=== PATIENT | female | born 1985 | race African-American/Black ===

== ENCOUNTER 2020-08-12 04:35 | Day surgery (SDC) | payer OTHER ==
[2020-08-11 09:49] VITALS: BMI 25.8
[2020-08-12] MEDS ORDERED: MIDAZOLAM HCL 2 MG/2 ML SINGLE DOSE VIAL ONE ×3 (07:27→07:51)
[2020-08-12] MEDS ORDERED: VASOPRESSIN 20 UNITS/ML VIAL IV ONE (07:32)
[2020-08-12] MEDS ORDERED: ceFAZolin SODIUM 1 GM VIAL ONE (07:50)
[2020-08-12] MEDS ORDERED: LIDOCAINE HCL/PF 2% SDV 5ML VIAL ONE ×2 (07:50→07:51)
[2020-08-12] MEDS ORDERED: LIDOCAINE HCL 2% JELLY (5 ML/TUBE) ONE (07:50)
[2020-08-12] MEDS ORDERED: KETOROLAC TROMETHAMINE 30 MG/1 ML VIAL ONE (07:50)
[2020-08-12] MEDS ORDERED: DEXAMETHASONE SOD PHOSPHATE 4 MG/1 ML VIAL ONE (07:50)
[2020-08-12] MEDS ORDERED: GLYCOPYRROLATE 0.2 MG/1 ML VIAL ONE ×2 (07:51→09:18)
[2020-08-12] MEDS ORDERED: fentaNYL CITRATE 250 MCG/5 ML VIAL ONE (07:51)
[2020-08-12] MEDS ORDERED: ROCURONIUM BROMIDE 50 MG/5 ML SYRINGE ONE (07:52)
--- NOTE | 2020-08-12 08:14 | HP ---
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: Alzheimer's, CVA, Dementia, Migraine, Multiple Sclerosis, Peripheral Neuropathy, Parkinson's, Seizure, Syncope, TIA, Vertigo, Other Cardiovascular: No: AFIB, Aneurysm, Aortic Insufficiency, Aortic Stenosis, CAD, CHF, Deep Vein Thrombosis, HTN, Hyperlipdemia, AK, Mitral Insufficiency, Mitral Stenosis, Murmur, Pulmonary Hypertension, Other Pulmonary: No: Asthma, Bronchitis, Cancer, COPD, O2 Dependent, Pneumonia, Previously Intubated, Pulmonary Embolus, Pulmonary Fibrosis, Sleep Apnea, Other Gastrointestinal: No: Ascites, Cancer, Constipation, Crohn's Disease, Diverticulitis, Diverticulosis, Esophageal Varices, Gastritis, GERD, GI Bleed, Hemorrhoids, Hiatal Hernia, Inflamatory Bowel Disease, Irritable Bowel Disease, Pancreatitis, Peptic Ulcer Disease, Ulcerative Colitis, Other Hepatobiliary: No: Cirrhosis, Cholelithiasis, Cholecystitis, Choledocholithiasis, Hepatitis A, Hepatitis B, Hepatitis C, Other Renal/: No: Renal Failure, Renal Inusuff, BPH, Cancer, Hematuria, Hemodialysis, Neurogenic Bladder, Renal Calculi, UTI, Other Reproductive: Yes: Fibroids ...LMP: 08/09/20 ...: No Heme/Onc: No: Anemia, B12 Deficiency, Bleeding Disorder, Cancer, Current Chemotherapy, Current Radiation Therapy, Hemochromatosis, Hypercoaguable State, Myeloproliferative Synd, Sickle Cell Disease, Sickle Cell Trait, Thrombocytopenia, Other Infectious Disease: No: AIDS, C-Diff, Herpes Zoster, HIV, MRSA, STD's, Tuberculosis, VREF, Other Psych: No: Addictions, Anxiety, Bipolar, Depression, Panic, Psychosis, Schizophrenia, Other Musculoskeletal: No: Bursitis, Chronic low back pain, Hemiparesis, Hemiplegia, Osteoarthritis, Paraplegia, Other Rheumatology: No: Fibromyalgia, Gout, Lupus, Rheumatoid Arthritis, Sarcoidosis, Vasculitis, Other ENT: No: Allergic Rhinitis, Sinusitis, Other Endocrine: No: Mccormick's Disease, Catherine's Disease, Diabetes Insipidus, Diabetes Mellitus, Hyperparathyroidism, Hyperthyroidism, Hypothyroidism, Osteopenia, SIADH, Other Dermatology: No: Basal Cell, Cellulitis, Eczema, Melanoma, Psoriasis, Squamous Cell, Other - Past Surgical History Past Surgical History: Yes: - Advance Directives Advance Directives: Yes: Living Will - Smoking History Smoking history: Never smoked - Alcohol/Substance Use Hx Alcohol Use: No History of Substance Use: reports: None - Social History Usual Living Arrangement: Yes: With Significant Other Do you think of yourself as: Straight/Heterosexual ADL: Independent History of Recent Travel: No Home Medications - Allergies Allergies/Adverse Reactions: Allergies Allergy/AdvReac Type Severity Reaction Status Date / Time shellfish derived Allergy Intermediate Swelling Verified 08/12/20 06:36 No Known Drug Allergies Allergy Verified 08/12/20 06:36 - Home Medications Home Medications: Ambulatory Orders Albuterol Sulfate Inhaler - [Ventolin Hfa Inhaler -] 1 - 2 inh PO Q4H PRN 08/11/20 Fluticasone/Salmeterol [Advair Hfa 45-21 Mcg Inhaler] 1 inh PO BID PRN 08/11/20 Naproxen [Naprosyn -] 500 mg PO BID PRN 08/11/20 Family Medical History Family History: Denies Review of Systems - Review of Systems Constitutional: reports: No Symptoms Eyes: reports: No Symptoms HENT: reports: No Symptoms Neck: reports: No Symptoms Cardiovascular: reports: No Symptoms Respiratory: reports: No Symptoms Gastrointestinal: reports: No Symptoms Genitourinary: reports: No Symptoms Breasts: reports: No Symptoms Reported Musculoskeletal: reports: No Symptoms Integumentary: reports: No Symptoms Neurological: reports: No Symptoms Endocrine: reports: No Symptoms Hematology/Lymphatic: reports: No Symptoms Psychiatric: reports: No Symptoms Physical Examination Vital Signs: Vital Signs Temperature 98.4 F 08/12/20 06:34 Pulse Rate 78 08/12/20 06:34 Respiratory Rate 20 08/12/20 06:34 Blood Pressure 117/59 L 08/12/20 06:34 O2 Sat by Pulse Oximetry (%) 100 08/12/20 06:34 Constitutional: Yes: Well Nourished, No Distress, Calm Eyes: Yes: WNL, Conjunctiva Clear, EOM Intact HENT: Yes: WNL, Atraumatic, Normocephalic Neck: Yes: WNL, Supple, Trachea Midline Cardiovascular: Yes: WNL, Regular Rate and Rhythm Respiratory: Yes: WNL, Regular, CTA Bilaterally Gastrointestinal: Yes: WNL, Normal Bowel Sounds, Soft ...Rectal Exam: Yes: WNL Renal/: Yes: WNL Breast(s): Yes: WNL Musculoskeletal: Yes: WNL Extremities: Yes: WNL Edema: No Peripheral Pulses WNL: Yes Integumentary: Yes: WNL Wound/Incision: Yes: Clean/Dry, Well Approximated Neurological: Yes: WNL, Alert, Oriented ...Motor Strength: WNL Psychiatric: Yes: WNL, Alert, Oriented Assessment/Plan for myomectomies,
[2020-08-12] MEDS ORDERED: ceFAZolin SODIUM 1 GM VIAL IVPB ONE (08:26)
[2020-08-12] MEDS ORDERED: NEOSTIGMINE METHYLSULFATE 0.5 MG/ML - 10 ML MDV ONE (09:18)
--- NOTE | 2020-08-12 09:38 | PN ---
Progress Note (short form) - Note Progress Note: I assisted Dr. Lopes at myomectomies for the entirety of the case.
[2020-08-12] MEDS ORDERED: oxyCODONE HCL 5 MG TABLET PO PRN ×2 (10:08→10:22)
[2020-08-12] MEDS ORDERED: ONDANSETRON 4 MG/2 ML VIAL IVPUSH PRN (10:08)
[2020-08-12] MEDS ORDERED: LACTATED RINGERS SOLUTION 1,000 ML IV SCH (10:15)
--- NOTE | 2020-08-12 10:17 | OP ---
Operative Note - Note: Operative Date: 08/12/20 Pre-Operative Diagnosis: fibroids, menorrhagia, pain Operation: myomectomies Findings: fibroids x 2 removed , intramural fibroids 6 x 8 cm Post-Operative Diagnosis: Same as Pre-op Surgeon: Dada Lopes (no complications ) Grease Press Helper: Blair Valero Anesthesia: General Estimated Blood Loss (mls): 100
[2020-08-12] MEDS ORDERED: ACETAMINOPHEN 325 MG TABLET (FP) PO PRN (10:22)
[2020-08-12] MEDS: DEXTROSE 5%-LACTATED RINGERS 1,000 ML IV SCH (12:50)
[2020-08-12] MEDS: ACETAMINOPHEN 325 MG TABLET (FP) PO SCH ×3 (15:39→21:33)
[2020-08-12] MEDS: IBUPROFEN 800 MG/8 ML IJ IVPB PRN (15:40)
[2020-08-12] MEDS: CEFAZOLIN 2 GM/D5W 2 GM/50 ML ML IVPB SCH (17:24)
[2020-08-12] MEDS: oxyCODONE HCL 5 MG TABLET PO PRN (17:26)
[2020-08-12 20:49] LABS: BASO % 0.4 % (0-2.0); HEMATOCRIT 30.6 % (32.4-45.2); HEMOGLOBIN 10.1 GM/dL (10.7-15.3); LYMPH % 5.5 % (8-40); MCH 28.2 pg (25.7-33.7); MEAN CELL VOLUME 85.2 fl (80-96); MEAN PLT VOLUME 9.5 fl (7.5-11.1); NEUT % 90.1 % (42.8-82.8); PLATELET COUNT 186 K/MM3 (134-434); RBC 3.59 M/mm3 (3.60-5.2); RDW 14.5 % (11.6-15.6); WHITE BLOOD COUNT 11.6 K/mm3 (4.0-10.0)
[2020-08-12] MEDS: oxyCODONE HCL 10 MG SUSTAINED ACTING TABLET PO SCH (21:30)
[2020-08-12] MEDS: SIMETHICONE 80 MG TAB.CHEW (FP) PO PRN (22:56)
[2020-08-13] MEDS: CEFAZOLIN 2 GM/D5W 2 GM/50 ML ML IVPB SCH (03:00)
[2020-08-13] MEDS: oxyCODONE HCL 5 MG TABLET PO PRN (03:50)
[2020-08-13] MEDS: ACETAMINOPHEN 325 MG TABLET (FP) PO SCH ×3 (05:42→15:48)
[2020-08-13 05:59] VITALS: TEMP 98.5
[2020-08-13] MEDS: DEXTROSE 5%-LACTATED RINGERS 1,000 ML IV SCH (07:33)
--- NOTE | 2020-08-13 08:58 | PN ---
Progress Note (short form) - Note Progress Note: POD # 1. VSS. Labs stable. Feels well. Discussed surgery. PE: WNL. Abd. soft. Wound clean and dry. No CVA, EXtrem. T. I/P: D/c [place]. OOB. Reg diet. Considering discharge today.
[2020-08-13] MEDS: IBUPROFEN 800 MG/8 ML IJ IVPB PRN (09:04)
[2020-08-13] MEDS: oxyCODONE HCL 10 MG SUSTAINED ACTING TABLET PO SCH (09:21)
--- NOTE | 2020-08-13 12:09 | PN ---
Progress Note (short form) - Note Progress Note: Anesthesia Post Op Note Pt s/p GA with TAP/RS blocks Pt awake alert sitting in chair denies n/v, puritis ambul well no urinary retention VSS pain mild no apparent anesthesia comp Loida Choi
[2020-08-13 12:15] VITALS: BP 109/61; PULSE 85
[2020-08-13] MEDS: SIMETHICONE 80 MG TAB.CHEW (FP) PO PRN (12:20)
--- NOTE | 2020-08-14 19:26 | PATH ---
Surgical Pathology Report Patient Name: ALINE CHERRY [facility]. Rec. #: [id number] /Age/Gender: 1985 (Age: 34) / F Account: [id number] Location: AMBULATORY SURG Taken: 08/12/2020 Received: 08/12/2020 Reported: 08/14/2020 Physicians: Dada Lopes MD Specimen(s) Received ABDOMINAL MYOMA Clinical History Fibroids Final Diagnosis ABDOMINAL MYOMAS, MYOMECTOMY: TWO PORTIONS OF LEIOMYOMA, 101 G. Electronically Signed Celeste Dewey M.D. Gross Description Received in formalin labeled "abdominal myomas," is a 101 g aggregate of 2 ku, rubbery nodules, consistent with fibroids. The fibroids measure 2.0 and 7.0 cm in greatest dimension. Sectioning reveals homogeneous ku, firm to rubbery parenchyma with whorled architecture. No areas of hemorrhage or necrosis are identified. Impregnator And Drier sections are submitted in 4 cassettes as follows: 1-smaller fibroid; 2-4-larger fibroid. /08/12/2020 saudi/08/12/2020
--- NOTE | 2020-08-20 09:27 | OP ---
DATE OF OPERATION: 08/12/2020 PREOPERATIVE DIAGNOSIS: Fibroid uterus, menorrhagia and pelvic pain. POSTOPERATIVE DIAGNOSIS: Fibroid uterus, menorrhagia and pelvic pain. PROCEDURE: Open abdominal myomectomy and fibroid uterus x2 removed. FINDINGS: Intramural fibroid 6 x 8 cm and the other one was about 2 x 3 cm. SURGEON: Dada Hamilton MD VICE PRESIDENT OF SOFTWARE ENGINEERING: Blair Valero MD ANESTHESIA: General. ANESTHESIOLOGIST: Karlos Brown MD INDICATION: This is a 34-year-old female patient with previous history of and is known to have a fibroid uterus, and patient has been complaining about severe pelvic pain, menorrhagia and has been postponing the surgery for many years. So, patient finally agreed and the patient insists on taking out the fibroids. PROCEDURE: So, patient was taken to the OR, placed on the operating table in the supine position. After general anesthesia was obtained, the patient was placed on the operating table in the supine position. The patient's abdomen and pelvis were prepped and draped in the usual sterile manner. Following the same Pfannenstiel incision, incision was made through skin, subcutaneous tissue until the fascia was nicked in the midline. The fascia was extended bilaterally, intraperitoneal cavity entered seeing 1 large fibroid 6 x 8 cm intramurally which was on the anterior fundus part of the uterus which we removed and we got into the uterine cavity. Then after the fibroid was removed 6 x 8 cm, we approximated the uterine muscular and serosa with good hemostasis. No complication. We proceeded to remove another 3 x 2 cm on anterior lower segment of the uterus and good hemostasis after removal. Muscular and the serosa were sutured. This was also intramural. Other than that, no complication. Patient tolerated the procedure well. Blood loss about 100 mL and draining clear urine. The ovaries looked normal and the tubes were normal. No complication. The peritoneum was closed. Fascia was closed. Skin was closed and transferred to recovery room in stable condition. DADA HAMILTON MD [id number]
== END 2020-08-13 17:43 | disposition home or self-care (01) ==
LOC: JASUSAT 04:35 → EDSTATUS 08:00 → J8W 13:07 → JASUSAT 08-13 17:43
PROVIDERS: ATTEND Obstetrics & Gynecology
PROC: 0UB90ZZ Excision of Uterus, Open Approach (ICD-10-PCS; principal; 2020-08-12 08:00)
DX: D25.1 Intramural leiomyoma of uterus (principal); D25.9 Leiomyoma of uterus, unspecified; D20.1 Benign neoplasm of soft tissue of peritoneum; N92.0 Excessive and frequent menstruation with regular cycle
CPT/HCPCS: 36415; 84703; 85025; 86850; 86900; 86901; 88305-TC; 94010; 94760